=== PATIENT | female | born 1995 | race Caucasian/White ===

== ENCOUNTER 2022-01-04 17:17 | Outpatient (CLI) | payer BC, SELFPAY ==
--- NOTE | ~2022-01-04 | XR_ITS ---
EXAMINATION: XR knee RT 2V DATE: 01/04/2022 17:36 INDICATION: Right knee pain. TECHNIQUE: 2 views of right knee were obtained. COMPARISON: None. FINDINGS: Bone alignment is normal. No fracture. Joint spaces are well maintained. There is no knee j oint effusion. IMPRESSION: 1. Normal right knee. Reviewed, dictated and finalized at location E. INSTRUCTIONAL ASSISTANT IMPRESSION: 1. Normal right knee.
== END 2022-01-04 17:18 | disposition home or self-care (01) ==
LOC: ANHIMG 17:19
PROVIDERS: PCP Internal Medicine; Visit Provider Nurse Practitioner
DX: M25.561 Pain in right knee (principal)
CPT/HCPCS: 73560

== ENCOUNTER 2022-04-04 12:30 | Outpatient (RCR) | payer BC, SELFPAY ==
--- NOTE | 2022-01-10 13:39 | PCPTNOTE ---
Patient called & cancelled scheduled initial evaluation this date due to inclement weather
--- NOTE | 2022-01-31 14:21 | PTOPEVAL ---
PHYSICAL THERAPY INITIAL EVALUATION. Thank you for referring Nai Nicholas to [facility].? The patient is scheduled to be seen for therapy? 1x/week for 4 weeks. Please review, sign, date and return this plan of care STACEY. I agree with and certify that the following plan of care is medically necessary. Referring Physician Date Attending Provider: Namrata Bradshaw NP *PT Outpatient Evaluation Start: 01/31/22 Evaluation Information Diagnosis Pain in right knee Onset June of 2021 Subjective Information Pt states she has been having Query Text:As Reported By Patient/ knee pain since June of last Family year. She noticed it initially when she would go to do a deep squat to pick something off the ground. Now she notices it going up/down stairs, is she sits for too long, or any position with prolonged flexion. She states occasionally she will get a pain in her R hip. She has tried a patellar support brace , and this did not help. Pt states she has a history of chronic back pain. Pt states she has an increased difficulty going up stairs, she now has to use the rail to help pull herself up. No increase in pain with standing or walking. Pain Assessment Right Knee(s) Reported Pain Level 6 Pain Description Pulling,Tightness Radicular Pain Location R hip Pain Frequency Acute,Intermittent Lowest Pain Intensity 4 Greatest Pain Intensity 7 Pain Aggravating Factors Bending,Lifting,Sitting,Stair Climbing Lower Extremity Range of Motion Gross Lower Extremity Range of Motion L knee 0-140 Comments R knee 0-130 Lower Extremity Muscle Strength Testing Gross Lower Extremity Strength B LE grossly 4/5 Pain reported with R knee extension Functional strength: unable to perform single leg sit<>stand Muscle Length Testing Muscle Length Testing Krystyna's Test Hip Muscle Length (R) Mild Tightness,(L) Mild Tightness Left Hamstring Length -30 Right Hamstring Length -40 Gastrocnemius Length (R) Mild
--- NOTE | 2022-02-28 14:36 | PTOPEVAL ---
PHYSICAL THERAPY PROGRESS REPORT. Thank you for referring Nai Nicholas to [facility].? The patient is scheduled to be seen for therapy? 1x/week in 5 weeks. Please review, sign, date and return this plan of care STACEY. I agree with and certify that the following plan of care is medically necessary. Referring Physician Date Attending Provider: Namrata Bradshaw NP Evaluation Information Diagnosis Pain in right knee Onset June of 2021 Subjective Information Pt states her knee is feeling Query Text:As Reported By Patient/ about the same, she report no Family change in pain level as well as no change in function Pain Assessment Right Knee(s) Reported Pain Level 5 Greatest Pain Intensity 8 Lower Extremity Range of Motion Gross Lower Extremity Range of Motion L knee 0-132 Comments R knee 0-132 Lower Extremity Muscle Strength Testing Gross Lower Extremity Strength B LE grossly 4+/5 R knee extension 4/5 B glute med - unable to maintain test position 3-/5 Pain reported with R knee extension Functional strength: single leg sit<>stand L LE: 3 in 30 sec R LE: 1 in 30 sec Palpation Assessment Palpation posterior to the patella Balance Assessment 5 Time Sit to Stand Time in Seconds 16 5 Time Sit to Stand Comments Initially: 21s, Without the Query Text:Normative Data: If Greater use of UEs Than 15 Seconds, 74% Increase Risk for 02/28/22: 16s without the use of Recurrent Falls UEs Gait Assessment Gait Pattern No Deviations/Normal Stair Climbing Assessment Stair Climbing Comments Able to ascend 4 stairs without the need for a raise, looked more unsteady descending without a rail. Pt reports doing a whole flight without a rail increases her pain a lot PT Clinical Summary Nai presents to therapy today for her progress report follow 4 therapy visits to treat her R knee pain. Today she report no improvements in her pain, function, nor mobility. She demonstrates mild strength improvements, she increased her time on the 5xSTS and demonstrates the ability to perform a single
--- NOTE | 2022-04-04 13:05 | PTOPEVAL ---
PHYSICAL THERAPY PROGRESS REPORT AND DISCHARGE SUMMARY. Thank you for referring Nai Nicholas to [facility].? The patient is to be discharged at this time. Please review, sign, date and return this plan of care STACEY. I agree with and certify that the following plan of care is medically necessary. Referring Physician Date Attending Provider: Namrata Bradshaw NP Evaluation Information Diagnosis Pain in right knee Onset June of 2021 Subjective Information Pt states her knee is doing Query Text:As Reported By Patient/ the same as it was a month ago Family . She reports no improvements in pain or function. She reports good compliance with her HEP, states her general activity in the day is about the same. Diagnostic Tests X-Rays For This Problem Yes: normal Pain Assessment Pain Scale Pain Scale Used Numeric (1 - 10) Self Report Pain Assessment Right Knee(s) Reported Pain Level 7 Greatest Pain Intensity 7 Interventions Used Interventions Used By Clinicians Education,Exercise Pain Relief Interventions Used By Standing Patient Lower Extremity Range of Motion Gross Lower Extremity Range of Motion L knee 0-132 Comments R knee 0-132 Lower Extremity Muscle Strength Testing Gross Lower Extremity Strength B LE grossly 4+/5 R knee extension 4+/5 B glute med - unable to maintain test position 3-/5 - compensatory hip flexion and ext rot when asked to hold position Posture Posture Evaluation View Posterior Thoracic Spine Posture Neutral Hip Posture (L) Internally Rotated,(R) Internally Rotated Knee Posture (L) Neutral,(R) Neutral Patellar Posture (L) Laterally Tilted,(R) Laterally Tilted Palpation Assessment Palpation posterior to the patella Knee Special Tests Margaret's Negative Right Anterior Drawer Negative Right Posterior Drawer Negative Right Valgus Stress Test Knee at 0 Degrees Negative Right Valgus Stress Test Knee at 30 Degrees Negative Right Varus Stress Test Knee at 0 Degrees Negative Right Varus Stress Test Knee at 30 Degrees Negative Right Thessaly's Test Negative Right Patellofemoral Apprehension Test Negative Left,Positive Right Gait Assessment Gait Pattern Assessment Other Gait Observations decreased gait speed, increase lateral pelvic sway.
== END 2022-04-04 16:06 | disposition home or self-care (01) ==
LOC: ANHPT 12:30
PROVIDERS: PCP Internal Medicine; Visit Provider Nurse Practitioner
DX: M25.561 Pain in right knee (principal)
CPT/HCPCS: 97110; 97112; 97140; 97161; 97530

== ENCOUNTER → 2023-05-07 06:55 | Outpatient (CLI) | payer BC, SELFPAY ==
--- NOTE | ~2023-05-07 | MR_ITS ---
EXAMINATION: MR knee RT wo con DATE: 05/08/2023 12:42 INDICATION: M25.561 - Pain in right knee TECHNIQUE: Magnetic resonance imaging (MRI) of the knee was performed without intravenous contrast. S equences included axial PD-weighted FS FSE, coronal PD-weighted FSE and PD-weighted FS FSE, sagittal PD-weighted FSE, and sagittal T2-weighted FS FSE. COMPARISON: X-ray right knee 02/20/2023 FINDINGS: Medial compartment: Intact meniscus. Mild diffuse cartilage thinning. Lateral compartment: Meniscus and cartilage intact. Patellofemoral compartment: Cartilage and retinacula intact. Ligaments and tendons: The ACL, PCL, MCL, and LCL are intact. Remaining flexor and extensor tendons are intact. Fluid: No significant fluid collection. Osseous/other: No suspicious focal or diffuse marrow signal. IMPRESSION: Mild diffuse cartilage thinning in the medial compartment, otherwise normal MR knee findings Reviewed, dictated and finalized at location K.
== END ==
PROVIDERS: PCP Nurse Practitioner Family; Visit Provider Nurse Practitioner Family
DX: M25.561 Pain in right knee (principal)
CPT/HCPCS: 73721